=== PATIENT | female | born 1995 | race African-American/Black ===

== ENCOUNTER 2017-06-23 11:17 | Emergency (ER) | payer SELFPAY ==
[2017-06-23 11:19] VITALS: BP 179/101; PULSE 64; RESP 14; TEMP 97.7; O2SAT 97
[2017-06-23 12:29] LABS: BACTERIA, URINE OCC /hpf; BILIRUBIN, URINE NEG (NEG); BLOOD, URINE SMALL (NEG); GLUCOSE,URINE NEG (NEG); KETONE, URINE NEG (NEG); NITRITE,URINE NEG (NEG); SQUAMOUS EPITHELIAL CELL URINE 1 /hpf (0-5); URINE COLOR DARK-YELLOW (YELLW/STRAW); URINE LEUKOCYTE ESTERASE LARGE (NEG)
[2017-06-23 12:31] LABS: WHITE BLOOD CELL CLUMPS FEW
[2017-06-23] MEDS ORDERED: IRON1TAB7 PO (13:29)
[2017-06-23] MEDS ORDERED: VITA250C3 CHEW (13:29)
[2017-06-23] MEDS ORDERED: MACR100C2 PO (13:36)
[2017-06-23] MEDS ORDERED: PHEN-510 PO (13:36)
--- NOTE | 2017-06-23 13:46 | PD ---
HPI . Dysuria Chief Complaint: [employer] Problem/Complaint Time Seen by Provider: 13:30 Travel History International Travel<30 days: No Contact w/Intl Traveler<30days: No Traveled to known affect area: No History of Present Illness HPI This patient presents with a chief complaint of dysuria. Onset was about a week ago but became acutely worse about 2 days ago. She is taking AZO without relief. She denies fever or vomiting. PFSH Past Medical History Diminished Hearing: No Hypertension: Yes Influenza Vaccination: Yes ?: Not LMP: 06/02/17 Past Surgical History Surgical History: No Previous Surgery Social History Alcohol Use: Yes (rarely) Tobacco Use: No Substance Use: No Allergies-Medications (Allergen,Severity, Reaction): Coded Allergies: No Known Allergies (Unverified , 06/23/17) Reported Meds & Prescriptions Reported Meds & Active Scripts Active Pyridium (Phenazopyridine HCl) 200 Mg Tablet 1 Tab PO Q6HR Macrobid (Nitrofurantoin Monoh/Nitrofur Macro) 100 Mg Cap 100 Mg PO BID 5 Days Reported Nufera (Iron Combinations) Unknown Strength Tab Unknown Dose PO DAILY Vitamin C (Ascorbic Acid) 250 Mg Chew 250 Mg CHEW DAILY Review of Systems Except as stated in HPI: all other systems reviewed are Neg Physical Exam Narrative GENERAL: Awake and alert and in no acute distress. SKIN: warm/dry. HEAD: Normocephalic. EYES: Pupils equal and round. No scleral icterus. No injection or drainage. ENT: No nasal bleeding or discharge. Mucous membranes pink and moist. NECK: Trachea midline. Full range of motion without pain.. CARDIOVASCULAR: Regular rate and rhythm. RESPIRATORY: No accessory muscle use. GASTROINTESTINAL: Abdomen soft. Nontender. Bowel sounds present. Nondistended. : No CVA tenderness MUSCULOSKELETAL: No obvious deformities. NEUROLOGICAL: Awake and alert. No obvious cranial nerve deficits. Motor grossly within normal limits. Normal speech. PSYCHIATRIC: Appropriate mood and affect; insight and judgment normal. Data Data Last Documented VS Vital Signs Date Time Temp Pulse Resp B/P (MAP) Pulse Ox O2 Delivery O2 Flow Rate FiO2 06/23/17 11:19 97.7 64 14 179/101 (127) 97 Orders Orders Urinalysis - C+S If Indicated (06/23/17 11:34) Ed Urine Pregnancytest Poc (06/23/17 11:34) Urine Culture (06/23/17 11:48) Ed Discharge Order (06/23/17 13:37) Labs Laboratory Tests Test 06/23/17 11:48 Urine Color DARK-YELLOW Urine Turbidity CLOUDY Urine pH 6.0 Urine Specific [place] 1.018 Urine Protein TRACE mg/dL Urine Glucose (UA) NEG mg/dL Urine Ketones NEG mg/dL Urine Occult Blood SMALL Urine Nitrite NEG Urine Bilirubin NEG Urine Urobilinogen LESS THAN 2.0 MG/DL Urine Leukocyte Esterase LARGE Urine RBC 19 /hpf Urine WBC /hpf Urine WBC Clumps FEW Urine Squamous Epithelial Cells 1 /hpf Urine Bacteria OCC /hpf Microscopic Urinalysis Comment CULTURE INDICATED MDM Medical Decision Making Medical Screen Exam Complete: Yes Emergency Medical Condition: Yes Differential Diagnosis Final differential diagnosis of urinary symptoms includes but is not limited to UTI, kidney stone, pyelonephritis, bacterial vaginosis, yeast infection, urinary retention Narrative Course This patient presents complaining with a probable UTI. She is complaining with dysuria and frequency. She reports similar symptoms in the past. UA>>small blood, large LE, 19 RBCs, TNTC WBC, few WBC clumps The patient will be discharged with prescriptions for Macrobid and Pyridium Diagnosis Primary Impression: Urinary tract infection Qualified Codes: N30.00 - Acute cystitis without hematuria Patient Instructions: General Instructions, Urinary Tract Infection in Women ( ED) Departure Forms: Tests/Procedures Scripts Phenazopyridine HCl (Pyridium) 200 Mg Tablet 1 TAB PO Q6HR for Dysuria, #10 Prov: Quyen Rice MD 06/23/17 Nitrofurantoin Monohydrate Macrocrystals (Macrobid) 100 Mg Cap 100 MG PO BID for Infection for 5 Days, #10 CAP 0 Refills Prov: Quyen Rice MD 06/23/17 Disposition: 01 DISCHARGE HOME Condition: Stable Quyen Rice MD Jun 23, 2017 13:46
[2017-06-23 14:14] VITALS: BP 180/103
== END 2017-06-23 14:16 | disposition home or self-care (01) ==
LOC: NEPD 11:17
DX: N30.00 Acute cystitis without hematuria (principal); I10 Essential (primary) hypertension
CPT/HCPCS: 81001; 84703; 87086; 99284